=== PATIENT | male | born 1950 | race Caucasian/White ===

== ENCOUNTER 2017-03-17 09:00 | Emergency (ER) | payer BC ==
[2017-03-17 09:38] VITALS: BP 127/71
--- NOTE | 2017-03-17 09:59 | UC ---
Respiratory Complaint HPI - HPI Summary HPI Summary: 66 yo male with sinus pressure and pain x 1 week low energy no fever/chills significant PND - History of Current Complaint Chief Complaint: UCRespiratory Stated Complaint: SINUS Time Seen by Provider: 03/17/17 09:47 Hx Obtained From: Patient Timing: Constant Severity Initially: Mild Severity Currently: Moderate Pain Intensity: 4 Pain Scale Used: 0-10 Numeric Character: Cough: Productive Aggravating Factors: Recumbent Position Alleviating Factors: OTC Meds, Nothing Associated Signs And Symptoms: Positive: Nasal Congestion, Sinus Discomfort - Allergies/Home Medications Allergies/Adverse Reactions: Allergies Allergy/AdvReac Type Severity Reaction Status Date / Time No Known Allergies Allergy Verified 03/17/17 09:31 Home Medications: Home Medications guaiFENesin ER TAB [Mucinex*] 600 mg PO BID PRN 03/17/17 [History Confirmed 09/21] PMH/Surg Hx/FS Hx/Imm Hx Previously Healthy: Yes Endocrine History: Dyslipidemia Cardiovascular History: Other - valve replacement Other Cardiovascular History: valve replacement - Surgical History Surgical History: Yes Surgery Procedure, Year, and Place: ulnar nerve surgery both elbows. carpal tunnel right wrist. trigger finger right middle finger release. arthroscopic of right knee/menisc. tear. right inguinal hernia repair - Family History Known Family History: Positive: Hypertension - Social History Alcohol Use: Occasionally Substance Use Type: None Smoking Status (MU): Never Smoked Tobacco - Immunization History Most Recent Tetanus Shot: 2010 per pt Review of Systems Constitutional: Negative Skin: Negative Eyes: Negative ENT: Nasal Discharge Respiratory: Cough Cardiovascular: Negative Gastrointestinal: Negative Genitourinary: Negative Motor: Negative Neurovascular: Negative Musculoskeletal: Negative Neurological: Negative Psychological: Negative All Other Systems Reviewed And Are Negative: Yes Physical Exam Triage Information Reviewed: Yes Appearance: Well-Appearing, No Pain Distress, Well-Nourished Vital Signs: Initial Vital Signs Temp 98.6 F 03/17/17 09:33 Pulse 88 03/17/17 09:33 Resp 16 03/17/17 09:33 BP 127/71 03/17/17 09:33 Pulse Ox 96 03/17/17 09:33 Eyes: Positive: Conjunctiva Clear ENT: Positive: Hearing grossly normal, Nasal congestion, Nasal drainage, TMs normal - left ok, right umable to vis due to cerumen. Negative: Trismus, Muffled/hoarse voice Neck: Positive: Supple, Nontender Respiratory: Positive: Lungs clear, Normal breath sounds, No respiratory distress Cardiovascular: Positive: RRR, No Murmur. Negative: Tachycardia, Bradycardia Musculoskeletal: Positive: ROM Intact, No Edema Neurological: Positive: Alert Psychological Exam: Normal Skin Exam: Normal UC Diagnostic Evaluation - Laboratory O2 Sat by Pulse Oximetry: 96 - normal /not hypoxic Respiratory Course/Dx - Differential Dx/Diagnosis Provider Diagnoses: acute sinusitis Discharge - Discharge Plan Condition: Stable Disposition: HOME Prescriptions: Amoxicillin (*) [Amoxicillin 875 MG (*)] 875 mg PO BID #20 tab Fluticasone NASAL SPRAY 50MCG* [Flonase NASAL SPRAY 50MCG*] 2 spray BOTH NARES DAILY #1 btl Patient Education Materials: Sinusitis (ED) Referrals: Joey Lyles MD [Primary Care Provider] - 1 Week (if not completely better)
== END 2017-03-17 09:59 | disposition home or self-care (01) ==
LOC: UCCORT 09:00
DX: J01.90 Acute sinusitis, unspecified (principal); E78.5 Hyperlipidemia, unspecified; Z95.2 Presence of prosthetic heart valve
CPT/HCPCS: 99212; G0463